=== PATIENT | male | born 1945 | race Caucasian/White ===

== ENCOUNTER 2023-03-07 12:28 | Outpatient (CLI) | payer MEDICARE, OTHER ==
[2023-03-07] MEDS ORDERED: Iopamidol 370 76% 100 ML VIAL ONE (13:09)
== END 2023-03-07 12:29 | disposition home or self-care (01) ==
LOC: CSHCT 12:28
PROVIDERS: ATTEND Thoracic Surgery (Cardiothoracic Vascular Surgery)
DX: I71.40 Abdominal aortic aneurysm, without rupture, unspecified (principal)
CPT/HCPCS: 71275; 74174; 82565